=== PATIENT | female | born 1990 | race Caucasian/White ===

== ENCOUNTER 2021-03-23 04:30 | Inpatient (IN) | payer MEDICAID ==
[~2021-03-23] VITALS: Ht 165.1 cm; Wt 96.2 kg
[2021-03-23 05:33] LABS: HEMATOCRIT. 32.7 % (36.0-48.0); MEAN CORPUSCULAR HEMOGLOBIN 27.3 pg (28.0-32.0); MEAN CORPUSCULAR VOLUME 81.4 fL (81.0-99.0); PLATELET 249 x1000/uL (130-400); RED BLOOD CELL COUNT 4.02 mill/uL (4.2-5.4); RED CELL DISTRIBUTION WIDTH 14.9 % (11.6-14.6)
[2021-03-23 05:40] LABS: CHLORIDE 107 mEq/L (98-107)
[2021-03-23 05:44] LABS: HCG SCREEN NEGATIVE
[2021-03-23] MEDS ORDERED: SODIUM CHLORIDE 0.9% 1,000 ML IV ONE ×3 (06:00→10:30)
[2021-03-23 07:30] LABS: PLATELET ESTIMATE NORMAL
[2021-03-23] MEDS ORDERED: KETOROLAC 30MG/ML VIAL IV ONE (07:30)
[2021-03-23] MEDS ORDERED: VANCOMYCIN 1 G PREMIX 200 ML IV ONE (07:45)
[2021-03-23] MEDS ORDERED: PIPERACILLIN/TAZ 3.375G PREMIX 50 ML IV ONE (07:45)
[2021-03-23] MEDS ORDERED: IOHEXOL-350 100 ML BOTTLE ONE (08:13)
[2021-03-23 11:17] VITALS: BP_SYST 147; BP_SYST 160; BP_DIAS 101; BP_DIAS 95
[2021-03-23] MEDS ORDERED: HYDR-4001 MT (11:49)
[2021-03-23] MEDS ORDERED: DIAZ5TAB4 MT (11:49)
[2021-03-23] MEDS ORDERED: ONDA4TAB5 MT (11:49)
[2021-03-23] MEDS ORDERED: GABA-532 MT (11:49)
[2021-03-23] MEDS ORDERED: SENN-257 MT (11:49)
[2021-03-23] MEDS ORDERED: CEPH500C2 MT (11:49)
[2021-03-23] MEDS ORDERED: *PATIENT'S OWN MEDICATION STORAGE XX SCH (12:15)
[2021-03-23] MEDS ORDERED: ACETAMINOPHEN 325MG TABLET PO PRN ×2 (12:45)
[2021-03-23] MEDS ORDERED: ONDANSETRON HCL 4MG/2ML INJ IV PRN (12:45)
[2021-03-23] MEDS ORDERED: CLONIDINE 0.1MG TABLET PO PRN (12:45)
[2021-03-23] MEDS ORDERED: IPRATROPIUM/ALBUTEROL 0.5-3(2.5)MG/3ML NEB HHN PRN (12:45)
[2021-03-23] MEDS ORDERED: DOCUSATE SODIUM 100MG CAPSULE PO PRN (12:45)
[2021-03-23] MEDS: LORAZEPAM 0.5MG TABLET PO PRN ×2 (13:23→21:23)
[2021-03-23] MEDS: VANCOMYCIN 750 MG PREMIX 150 ML IV SCH ×2 (14:00→21:05)
[2021-03-23 16:00] VITALS: BP 137/84
[2021-03-23] MEDS: PIPERACILLIN/TAZOBACTAM 3.375 G in DEXTROSE 5% WATER 50 ML IV SCH ×2 (16:19→21:05)
[2021-03-23] MEDS ORDERED: TRAMADOL 50MG TABLET PO PRN (17:45)
[2021-03-23] MEDS: GABAPENTIN 300MG CAPSULE PO SCH (17:58)
[2021-03-23] MEDS ORDERED: PHENOL/SODIUM PHENOLATE 1.4% SRPAY 177ML MM PRN (18:00)
[2021-03-23 18:45] LABS: *AMPHETAMINES SCREEN URINE NEGATIVE (NEGATIVE); *BARBITURATES SCREEN URINE NEGATIVE (NEGATIVE); *COCAINE SCREEN URINE NEGATIVE (NEGATIVE)
[2021-03-23 18:46] LABS: CANNABINOID URINE SCREEN NEGATIVE (NEGATIVE); METHADONE URINE SCREEN NEGATIVE (NEGATIVE); OPIATES URINE SCREEN NEGATIVE (NEGATIVE); PHENCYCLIDINE URINE SCREEN NEGATIVE (NEGATIVE)
[2021-03-23 18:47] LABS: *BENZODIAZEPINES SCREEN URINE PRESUMTIVE POSITIVE (NEGATIVE)
[2021-03-23 18:57] LABS: BASOPHILS % 0.1 % (0.0-2.0); HEMOGLOBIN. 9.2 g/dL (12.0-16.0); LYMPHOCYTES % 11.9 % (20.0-50.0); MEAN CORPUSCULAR HEMOGLOBIN 28.2 pg (28.0-32.0); MEAN CORPUSCULAR VOLUME 82.7 fL (81.0-99.0); MEAN PLATELET VOLUME 8.7 fl (7.4-10.4); MONOCYTES % 8.8 % (2.0-8.0); NEUTROPHILS % 79.2 % (40.0-76.0); PLATELET 209 x1000/uL (130-400); RED BLOOD CELL COUNT 3.26 mill/uL (4.2-5.4); RED CELL DISTRIBUTION WIDTH 15.2 % (11.6-14.6)
[2021-03-23] MEDS: HYDROCODONE/ACETAMINOPHEN 5/325MG TABLET PO PRN (19:52)
[2021-03-23 20:00] VITALS: BP 128/84
[2021-03-24 00:19] VITALS: BP 119/71
[2021-03-24] MEDS: HYDROCODONE/ACETAMINOPHEN 5/325MG TABLET PO PRN ×2 (02:09→09:45)
[2021-03-24 04:30] VITALS: BP 130/63
[2021-03-24] MEDS: VANCOMYCIN 750 MG PREMIX 150 ML IV SCH (05:23)
[2021-03-24] MEDS: PIPERACILLIN/TAZOBACTAM 3.375 G in DEXTROSE 5% WATER 50 ML IV SCH (05:23)
[2021-03-24 06:48] LABS: BASOPHILS % 0.1 % (0.0-2.0); HEMATOCRIT. 25.2 % (36.0-48.0); HEMOGLOBIN. 8.7 g/dL (12.0-16.0); LYMPHOCYTES % 13.2 % (20.0-50.0); MEAN CORPUSCULAR HEMOGLOBIN 27.8 pg (28.0-32.0); MEAN CORPUSCULAR VOLUME 80.3 fL (81.0-99.0); MEAN PLATELET VOLUME 8.9 fl (7.4-10.4); MONOCYTES % 6.4 % (2.0-8.0); NEUTROPHILS % 80.3 % (40.0-76.0); PLATELET 186 x1000/uL (130-400); RED BLOOD CELL COUNT 3.14 mill/uL (4.2-5.4); RED CELL DISTRIBUTION WIDTH 15.2 % (11.6-14.6)
[2021-03-24 06:51] LABS: CHLORIDE 108 mEq/L (98-107)
[2021-03-24 08:00] VITALS: BP 140/97
[2021-03-24] MEDS: GABAPENTIN 300MG CAPSULE PO SCH (09:24)
[2021-03-24 09:45] VITALS: BP 140/93
== END 2021-03-24 11:00 | disposition left against medical advice (07) | DRG 48 ==
LOC: ER 04:30 → EDBEDREQ 07:33 → 6WST 09:57 → EDBEDREQTM 10:01 → EDBEDREQ 10:01 → ENRESERV 10:53
PROVIDERS: ADMIT Internal Medicine; ATTEND Internal Medicine
DX: S44.8X2A Injury of other nerves at shoulder and upper arm level, left arm, initial encounter (principal); E87.2 Acidosis; K76.0 Fatty (change of) liver, not elsewhere classified; D64.9 Anemia, unspecified; I10 Essential (primary) hypertension; F41.1 Generalized anxiety disorder; X58.XXXA Exposure to other specified factors, initial encounter; R00.0 Tachycardia, unspecified; Z79.891 Long term (current) use of opiate analgesic; Z79.899 Other long term (current) drug therapy; Z98.82 Breast implant status; Y93.89 Activity, other specified; Y92.89 Other specified places as the place of occurrence of the external cause; Y99.8 Other external cause status
CPT/HCPCS: 36415; 71045; 71275; 80048; 80053; 80305; 83605; 83880; 84145; 84484; 84703; 85025; 93005; 99291; J1885; J2405; J2543; J3370; J7030; J7040; J7060; Q9967; A4315